=== PATIENT | male | born 1945 | race Caucasian/White ===

== ENCOUNTER 2020-01-27 10:06 | Outpatient (CLI) | payer OTHER, SELFPAY ==
--- NOTE | 2020-01-27 10:14 | FL_ITS ---
WS: [id number] FL barium swallow [id number] REASON FOR EXAM: DYSPHAGIA FLUOROSCOPY TIME: 2 minutes FINDINGS: The patient's swallowing and esophagus was evaluated in both the standing and MONSIVAIS prone positions. Fl uoroscopy and spot film images were obtained. Patient had a similar examination 07/24/2018. Images and report reviewed. Previous CT scan of the neck 10/24/2017 was also reviewed. The swallowing mechanics appear to be normal and there is no evidence of aspiration. No retention of barium. The previously identified small Zenker's diverticulum was not demonstrated on this examination. A large anterior osteophyte from the anterior inferior margin of C3 produces some indentation on the posterior hypopharynx to the right of midline as shown on the previous CT scan. However the more prom inent encroachment on the posterior hypopharynx on this examination is seen at C5 and most likely rep resents nonrelaxing cricopharyngeus muscle. The esophagus was somewhat slow to empty in the prone position however no tertiary contractions were identified. A small sliding hiatal hernia without significant Schatzki ring was noted. No stricture w as seen. FL/FL barium swallow [id number] IMPRESSION: Most likely the pathophysiology of a Zenker's diverticulum, i.e. nonrelaxing cr icopharyngeus muscle, is the cause of the patient's difficulty with swallowing. 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
== END 2020-01-27 10:07 | disposition home or self-care (01) ==
LOC: RAD 10:07
PROVIDERS: PCP Emergency Medicine Emergency Medical Services; Visit Provider Emergency Medicine Emergency Medical Services
DX: R13.19 Other dysphagia (principal); M50.321 Other cervical disc degeneration at C4-C5 level
CPT/HCPCS: 74220

== ENCOUNTER → 2020-10-19 11:53 | Outpatient (BNVA) | payer OTHER, SELFPAY | PROVIDERS: PCP Emergency Medicine Emergency Medical Services; Visit Provider Specialist | DX: G31.01 Pick's disease (principal); F02.80 Dementia in other diseases classified elsewhere, unspecified severity, without behavioral disturbance, psychotic disturbance, mood disturbance, and anxiety | CPT/HCPCS: 99214 ==

== ENCOUNTER 2024-03-11 16:26 | Emergency (ER) | payer OTHER, SELFPAY ==
[2024-03-11] VITALS (7 sets, daily range): BP systolic 159–191; BP diastolic 85–133; PULSE 69–94; RESP 15–18; TEMP 36.6; O2SAT 96–98
--- NOTE | 2024-03-11 16:39 | CTR_ITS ---
PROCEDURE INFORMATION: Exam: CT Head Without Contrast Exam date and time: 03/11/2024 5:12 PM Age: 78 years old Clinical indication: Altered mental status/memory loss; Confusion or disorientation; Additional info: AMS TECHNIQUE: Imaging protocol: Computed tomography of the head without contrast. Radiation optimization: All CT scans at this facility use at least one of these dose optimization techniques: automated exposure control; mA and/or kV adjustment per patient size (includes targeted exams where dose is matched to clinical indication); or iterative reconstruction. COMPARISON: CT head wo con* [id number] 07/19/2017 11:40 AM RADIATION DOSE METRICS: Total DLP (mGy-cm): 1230.38 FINDINGS: Brain: Moderate diffuse cortical volume loss which has slightly progressed. Progressed moderate hypodensities in supratentorial periventricular and subcortical white matter, consistent with microangiopathy. No intracranial hemorrhage. Cerebral ventricles: No ventriculomegaly. Paranasal sinuses: Opacification of the right maxillary sinus. The other sinuses are clear. Mastoid air cells: Visualized mastoid air cells are well aerated. Orbital cavities: Prior cataract surgery. Bones: Right temporal craniotomy defect. No acute fracture. Soft tissues: Unremarkable. Vasculature: No hyperdense artery. 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 This creates significant streak artifact. CT/CT head wo con* [id number] IMPRESSION: 1. No acute intracranial abnormality. 2. Moderate cortical volume loss and microangiopathy, which have progressed since the prior study.
--- NOTE | 2024-03-11 16:39 | XRR_ITS ---
PROCEDURE INFORMATION: Exam: XR Chest Exam date and time: 03/11/2024 4:44 PM Age: 78 years old Clinical indication: Pain; Angina pectoris; Patient HX: AMS; Additional info: Cp TECHNIQUE: Imaging protocol: Radiologic exam of the chest. Views: 1 view. COMPARISON: CR XR chest 1V [id number] 07/19/2017 11:35 AM FINDINGS: Lungs: Minimal atelectasis or scar in the lung bases. The lungs are otherwise clear. No consolidation. Pleural spaces: Unremarkable. No pleural effusion. No pneumothorax. Heart/Mediastinum: Unremarkable. No cardiomegaly. Bones/joints: Mild curvature and degenerative changes in the spine. No fracture. XR/XR chest 1V portable [id number] IMPRESSION: 1. No acute findings.
--- NOTE | 2024-03-11 16:40 | ECG_ITS ---
[facility] Date: 2024-[facility]-11 Pat Name: Livan Garrido Department: Room: Gender: Male Ticket Puller: : 1945 Requested By: Leslie Garcia Order Number: [id number] Олег MD: Jatinder Coreas M.D. Measurements Intervals [place] Rate: 79 P: 47 DC: 164 QRS: 42 QRSD: 75 T: 60 QT: 377 QTc: 435 Interpretive Statements SINUS RHYTHM NON SPECIFIC ST T WAVE CHANGES Compared to ECG 11/02/2017 11:44:17 ST (T wave) deviation now present Electronically Signed On 03-15-2024 23:18:08 COMMUNITY ADMINISTRATOR by Jatinder Coreas M.D. [email or web address]
--- NOTE | 2024-03-11 16:44 | W.ED.AMS ---
HPI - Altered Mental Status General: Chief Complaint: Altered Mental Status Stated Complaint: AMS/unable to swallow Time Seen by Provider: 03/11/24 16:30 Source: EMS Mode of arrival: EMS Limitations: altered mental status History of Present Illness: 78-year-old male who has a history of severe dementia is a skilled nursing per skilled nursing patient's bedbound is not verbal but states that today he seemed to be more altered than usual since this morning. Patient is nonverbal not able to follow commands or answer any questions Related Data Home Medications Medication Instructions Recorded Confirmed albuterol sulfate 90 mcg/actuation 2 puff inhalation Q6H PRN 05/29/19 10/19/20 aerosol inhaler (Proventil HFA) aspirin 81 mg tablet,delayed 81 mg PO DAILY 05/29/19 10/19/20 release (Adult Low Dose Aspirin) cetirizine 10 mg tablet (24Hour 5 mg PO DAILY PRN 05/29/19 10/19/20 Allergy) hydrochlorothiazide 25 mg tablet 12.5 mg PO DAILY 05/29/19 10/19/20 lisinopril 10 mg tablet 5 mg PO DAILY 05/29/19 10/19/20 metoprolol tartrate 25 mg tablet 12.5 mg PO BID 05/29/19 10/19/20 multivitamin 1 tab PO DAILY 05/29/19 10/19/20 pantoprazole 40 mg tablet,delayed 40 mg PO DAILY 05/29/19 10/19/20 release simvastatin 80 mg tablet 40 mg PO DAILY 05/29/19 10/19/20 tamsulosin 0.4 mg capsule 0.4 mg PO DAILY 05/29/19 10/19/20 Previous Rx's Medication Instructions Recorded memantine 10 mg tablet (Namenda) 10 mg PO BID #180 tabs 10/19/20 Allergies Allergy/AdvReac Type Severity Reaction Status Date / Time No Known Allergies Allergy Verified 10/19/20 12:15 Review of Systems General: Reports: ROS unobtainable due to mental status [facility] ED PFSH: Medical History (Updated 03/11/24 @ 18:09 by Leslie Garcia MD) Palpitations EKG on 01/12/2020 revealed sinus bradycardia with a rate of [address]-T's. Atypical chest pain Mixed hyperlipidemia Benign essential hypertension with target blood pressure below 140/90 Syncope HTN (hypertension) History of aneurysm Surgical History S/P brain surgery aneurysm 1985 Social History Smoking and tobacco/nicotine status: never used tobacco/nicotine Alcohol intake: never Substance/Drug Use: never Physical Exam Const: COMMON NORMALS: negative for patient oriented x3 HENMT: COMMON NORMALS: normocephalic and atraumatic HEAD & SCALP: normocephalic and atraumatic Eye: COMMON NORMALS: conjunctivae normal CONJUNCTIVA: Yes conjunctivae normal Neck/C-Spine: COMMON NORMALS: full ROM and supple Chest: COMMONS NORMALS: normal inspection of the chest Resp: COMMON NORMALS: normal respiratory effort and clear to auscultation bilaterally AUSCULTATION: clear to auscultation bilaterally Cardio: COMMON NORMALS: regular rate, regular rhythm and No murmurs present (Cardio) RATE: regular rate RHYTHM: regular rhythm Extremity: COMMON NORMALS: normal to inspection and full ROM Neuro: COMMON NORMALS: negative for patient oriented x3 Psych: COMMON NORMALS: negative for mental status grossly normal Skin: COMMON NORMALS: no rashes or lesions noted and no wounds GENERAL SKIN EXAM: no rashes or lesions noted Course Vital Signs: Vital signs: Vital Signs Temperature 97.8 F 03/11/24 16:28 Pulse Rate 82 03/11/24 19:00 Respiratory Rate 17 03/11/24 19:00 Blood Pressure 191/95 03/11/24 19:00 Pulse Oximetry 97 03/11/24 19:00 Oxygen Delivery Me thod Room Air 03/11/24 19:00 MDM - Altered Mental Status Medical Decision Making Patient presents here for altered mental status he is dementia he is at his baseline here blood work head CT are normal no signs of any acute infections patient stable for discharge at this time back to skilled nursing. Medical Records I reviewed the patient's medical records. Lab Data I reviewed the patient's lab results. 03/11/24 17:35 03/11/24 17:35 Radiology Impressions Chest X-Ray 03/11/24 16:39 IMPRESSION: 1. No acute findings. Head CT 03/11/24 16:39 IMPRESSION: 1. No acute intracranial abnormality. 2. Moderate cortical volume loss and microangiopathy, which have progressed since the prior study. Laboratory Results WBC 14.55 10^3/uL (3.29-11.43) H 03/11/24 17:35 RBC 5.20 10^6/uL (3.85-5.65) 03/11/24 17:35 Hgb 15.80 g/dL (11.27-16.99) 03/11/24 17:35 Hct 47.7 % (37-53) 03/11/24 17:35 MCV 91.7 fl (82-101) 03/11/24 17:35 MCH 30.4 pg (27-33) 03/11/24 17:35 MCHC 33.1 g/dL (30-55) 03/11/24 17:35 RDW 13.8 % (12.1-15.1) 03/11/24 17:35 Plt Count 218 10^3/cmm (157-399) 03/11/24 17:35 MPV 9.3 fL (7.4-10.4) 03/11/24 17:35 Neut % (Auto) 83.9 % 03/11/24 17:35 Lymph % (Auto) 9.3 % 03/11/24 17:35 [place] % (Auto) 5.8 % 03/11/24 17:35 Eos % (Auto) 0.3 % 03/11/24 17:35 Baso % (Auto) 0.4 % 03/11/24 17:35 Neut # (Auto) 12.20 10^3/uL (1.8-7.7) H 03/11/24 17:35 Lymph # (Auto) 1.4 10^3/uL (0.8-4.8) 03/11/24 17:35 [place] # (Auto) 0.8 10^3/uL (0.2-0.9) 03/11/24 17:35 Eos # (Auto) 0.1 10^3/uL (0.0-0.8) 03/11/24 17:35 Baso # (Auto) 0.1 10^3/uL (0.0-0.1) 03/11/24 17:35 Nucleated RBC % (auto) 0 % 03/11/24 17:35 Nucleated RBCs # 0.0 /100WBC 03/11/24 17:35 Sodium 147 mmol/L (136-145) H 03/11/24 17:35 Potassium 4.2 mmol/L (3.5-5.1) 03/11/24 17:35 Chloride 109 mmol/L (98-107) H 03/11/24 17:35 Carbon Dioxide 28 mmol/L (22-29) 03/11/24 17:35 Anion Gap 14.2 (5-19) 03/11/24 17:35 BUN 28 mg/dL (8-23) H 03/11/24 17:35 Creatinine 0.8 mg/dL (0.7-1.2) 03/11/24 17:35 GFR Calculation Not Reportable 03/11/24 17:35 Glucose 117 mg/dL (65-115) H 03/11/24 17:35 Calculated Osmolality 311 mOsm/kg (285-295) H 03/11/24 17:35 Calcium 10.3 mg/dL (8.5-10.5) 03/11/24 17:35 Total Bilirubin 0.7 mg/dL (0.15-1.2) 03/11/24 17:35 AST 14 U/L (0-40) 03/11/24 17:35 ALT 22 U/L (0-41) 03/11/24 17:35 Alkaline Phosphatase 157 U/L (40-130) H 03/11/24 17:35 Total Protein 7.9 g/dL (6.6-8.7) 03/11/24 17:35 Albumin 4.7 g/dL (3.5-5.2) 03/11/24 17:35 Globulin 3.2 g/dL (1.3-4.6) 03/11/24 17:35 Urine Color Yellow (Yellow) 03/11/24 17:04 Urine Appearance Clear (CLEAR) 03/11/24 17:04 Urine pH 6.5 (5-7) 03/11/24 17:04 Ur Specific [place] 1.026 (1.005-1.030) 03/11/24 17:04 Urine Protein 1+ (Negative) A 03/11/24 17:04 Urine Glucose (UA) Negative (Normal) 03/11/24 17:04 Urine Ketones Negative (Negative) 03/11/24 17:04 Urine Blood Negative (Negative) 03/11/24 17:04 Urine Nitrate Negative (Negative) 03/11/24 17:04 Urine Bilirubin Negative (Negative) 03/11/24 17:04 Urine Urobilinogen 0.2 mg/dL (Negative) 03/11/24 17:04 Ur Leukocyte Esterase Negative (Negative) 03/11/24 17:04 Urine RBC 0-2 /hpf (0-2) 03/11/24 17:04 Urine WBC 0-5 /hpf (0-5) 03/11/24 17:04 Ur Squamous Epith Cells 0-5 /hpf (0-5) 03/11/24 17:04 Amorphous Sediment Not Reportable 03/11/24 17:04 Urine Bacteria None seen /hpf (NONE) 03/11/24 17:04 Hyaline Casts 0.81 /lpf 03/11/24 17:04 All radiology interpretation(s) finalized by discharge EKG Data EKG 1: I personally reviewed and interpreted this EKG as follows: EKG interpretation date: 03/11/24 EKG interpretation time: 16:51 Interpretation: nsr hr [address] elevation qrs 76 qtc 404 Discharge Plan Discharge Patient Disposition: Home Clinical Impression: Dementia, Altered mental status Condition: Stable Prescriptions: No Action lisinopril 10 mg tablet 5 mg PO DAILY cetirizine [24Hour Allergy] 10 mg tablet 5 mg PO DAILY PRN albuterol sulfate [Proventil HFA] 90 mcg/actuation HFA aerosol inhaler 2 puff INHALATION Q6H PRN tamsulosin 0.4 mg capsule 0.4 mg PO DAILY hydrochlorothiazide 25 mg tablet 12.5 mg PO DAILY simvastatin 80 mg tablet 40 mg PO DAILY aspirin [Adult Low Dose Aspirin] 81 mg tablet,delayed release (DR/EC) 81 mg PO DAILY multivitamin Tablet 1 tab PO DAILY pantoprazole 40 mg tablet,delayed release (DR/EC) 40 mg PO DAILY metoprolol tartrate 25 mg tablet 12.5 mg PO BID memantine [Namenda] 10 mg tablet 10 mg PO BID Qty: 180 3RF Discharge Orders: Discharge ED (Routine); Ordered 03/11/24 Ordered By: Leslie Garcia Referrals: Francisco Álvarez DO [Primary Care Provider] - Discharge Diet: Advance as tolerated Discharge Activity: Resume usual activity Patient Instructions: Altered Mental Status (ED) Coding Level of Care Code ED Busboy for Chg Fwd
[2024-03-11 17:22] LABS: Bilirubin Urine Negative (Negative); Blood Urine Negative (Negative); Glucose Urine UA Negative (Normal); Ketones Urine Negative (Negative); Leukocyte Esterase Urine Negative (Negative); Nitrate Urine Negative (Negative); Protein Urine 1+ (Negative); Specific Gravity, Urine 1.026 (1.005-1.030); Urine Appearance Clear (CLEAR); Urine Color Yellow (Yellow); Urobilinogen Urine 0.2 mg/dL (Negative); pH Urine 6.5 (5-7)
[2024-03-11 17:25] LABS: Add Urine Microscopic? YES; Bacteria Urine None Seen /hpf; Hyaline Casts Urine 0.81 /lpf; RBC Urine 0-2 /hpf (0-2); Squamous Epithelial Cell Urine 0-5 /hpf (0-5); WBC Urine 0-5 /hpf (0-5)
[2024-03-11 17:41] LABS: UA Slide Review UA Slide Review Perf
[2024-03-11 17:46] LABS: Basophils # 0.1 10^3/uL (0.0-0.1); Basophils % 0.4 %; Eosinophils # 0.1 10^3/uL (0.0-0.8); Eosinophils % 0.3 %; Hematocrit 47.7 % (37-53); Lymphocytes # 1.4 10^3/uL (0.8-4.8); Lymphocytes % 9.3 %; Mean Corpuscular HGB Conc 33.1 g/dL (30-55); Mean Corpuscular Hemoglobin 30.4 pg (27-33); Mean Corpuscular Volume 91.7 fl (82-101); Mean Platelet Volume 9.3 fL (7.4-10.4); Monocytes # 0.8 10^3/uL (0.2-0.9); Monocytes % 5.8 %; Neutrophils % 83.9 %; Nucleated Red Blood Cells % 0 %; Platelet Count 218 10^3/cmm (157-399); Red Cell Distribution Width 13.8 % (12.1-15.1); White Blood Count 14.55 10^3/uL (3.29-11.43)
[2024-03-11 18:05] LABS: Alanine Aminotransferase 22 U/L (0-41); Albumin Level 4.7 g/dL (3.5-5.2); Alkaline Phosphatase 157 U/L (40-130); Anion Gap 14.2 (5-19); Aspartate Amino Transferase 14 U/L (0-40); Blood Urea Nitrogen 28 mg/dL (8-23); Calcium 10.3 mg/dL (8.5-10.5); Carbon Dioxide 28 mmol/L (22-29); Chloride 109 mmol/L (98-107); Globulin 3.2 g/dL (1.3-4.6); Glucose 117 mg/dL (65-115); Osmolality Calculated 311 mOsm/kg (285-295); Potassium 4.2 mmol/L (3.5-5.1); Sodium 147 mmol/L (136-145); Total Bilirubin 0.7 mg/dL (0.15-1.2); Total Protein 7.9 g/dL (6.6-8.7)
== END 2024-03-11 20:08 | disposition home or self-care (01) ==
PROVIDERS: Emergency Provider Emergency Medicine; PCP Emergency Medicine Emergency Medical Services
DX: F03.90 Unspecified dementia, unspecified severity, without behavioral disturbance, psychotic disturbance, mood disturbance, and anxiety (principal); R41.82 Altered mental status, unspecified; Z79.82 Long term (current) use of aspirin; E78.2 Mixed hyperlipidemia; I10 Essential (primary) hypertension
CPT/HCPCS: 36415; 70450; 71045; 80053; 81001; 85025; 93005; 99285